=== PATIENT | female | born 1975 | race African-American/Black ===

== ENCOUNTER → 2021-03-08 | Outpatient (CLI) | payer OTHER ==
[~2021-03-08] MED LIST: AUGMENTIN 875875 MG PO; SUDAFED 12 HR120 MG PO; TRAMADOL 50 MG50 MG PO
== END ==
LOC: CAT 15:59
PROVIDERS: ATTEND Internal Medicine Cardiovascular Disease
DX: Z13.6 Encounter for screening for cardiovascular disorders (principal); I25.10 Atherosclerotic heart disease of native coronary artery without angina pectoris; E78.00 Pure hypercholesterolemia, unspecified